=== PATIENT | male | born 1955 | race Hispanic/Latino ===

== ENCOUNTER 2023-01-27 07:42 | Day surgery (SDC) | payer SELFPAY ==
[~2023-01-27] VITALS: Ht 157.5 cm; Wt 79.8 kg
[2023-01-27] MEDS ORDERED: KEFLEX500 MG PO (11:18)
[2023-01-27] MEDS ORDERED: PERCOCET 5/325M1 TAB PO (11:18)
[2023-01-27 13:54] VITALS: BP 134/84
== END 2023-01-27 13:15 | disposition home or self-care (01) | DRG 352 ==
LOC: ORM 07:42
PROVIDERS: ATTEND Surgery
PROC: 0YU50JZ Supplement Right Inguinal Region with Synthetic Substitute, Open Approach (ICD-10-PCS; principal; 2023-01-27)
DX: K40.30 Unilateral inguinal hernia, with obstruction, without gangrene, not specified as recurrent (principal)
CPT/HCPCS: C9290; J0131; J0690; J1100